=== PATIENT | female | born 1985 | race Caucasian/White ===

== ENCOUNTER 2017-07-15 16:17 | Emergency (ER) | payer OTHER ==
[2017-07-15 16:52] VITALS: BP 105/72
[2017-07-15] MEDS ORDERED: SODIUM CHLORIDE 0.9% 1,000 ML IV ONE (17:40)
[2017-07-15] MEDS ORDERED: ONDANSETRON 4 MG/2 ML VIAL IVP STA (17:40)
--- NOTE | 2017-07-15 17:42 | ED Physician Documentation ---
History of Present Illness - Stated complaint Stated Complaint: VOMITING - Chief complaint Chief Complaint: General - History obtained from History obtained from: Patient - History of Present Illness Timing: Other (G3 with recent positive home test, she is unsure of her LMP, she had a normal one in April but some spotting in May. Since yesterday she has had trouble with nausea and vomiting not associated with cramping, abdominal pain, diarrhea, or bleeding.) Review of Systems Constitutional: denies: Fever, Chills GI: reports: Nausea, Vomiting. denies: Abdominal Pain, Abdominal Swelling, Constipation, Diarrhea : denies: Dysuria PD PAST MEDICAL HISTORY - Past Surgical History Past Surgical History: No - Present Medications Home Medications: Ambulatory Orders Medication Instructions Recorded Confirmed Hydrocodone/Acetaminophen 1 - 2 each PO Q6H PRN #10 tablet 01/26/16 [Hydrocodon-Acetaminophen 5-325] Nitrofurantoin Monohyd/M-Cryst 100 mg PO BID 5 Days 01/26/16 [Macrobid 100 mg Capsule] Metoclopramide [Reglan] 10 mg PO Q6H PRN #20 tablet 07/15/17 Nitrofurantoin Monohyd/M-Cryst 1 tab PO BID 5 Days 07/15/17 [Macrobid 100 mg Capsule] - Allergies Allergies/Adverse Reactions: Allergies Allergy/AdvReac Type Severity Reaction Status Date / Time No Known Drug Allergies Allergy Verified 07/15/17 16:40 - Social History Does the pt smoke?: No Smoking Status: Never smoker Does the pt drink ETOH?: No Does the pt have substance abuse?: No - Immunizations Immunizations are current?: Yes PD ED PE NORMAL - Vitals Vital signs reviewed: Yes - General General: Alert and oriented X 3, No acute distress - Abdomen Abdomen: Normal bowel sounds, Soft, Non tender - Female Female : Other (Bedside ultrasound demonstrates single intrauterine with crown-rump length equivalent to 7 week 1 day gest; I believe I saw heart motion, but it was difficult to specifically delineate using the transabdominal approach and M-mode.) - Derm Derm: No rash - Neuro Neuro: Alert and oriented X 3, Normal speech - Psych Psych: Normal mood, Normal affect Results - Vitals Vitals: Vital Signs - 24 hr 07/15/17 16:36 Temperature 36.4 C L Heart Rate 72 Respiratory 20 Rate Blood Pressure 105/72 O2 Saturation 100 Oxygen O2 Source Room air - Labs Labs: Laboratory Tests 07/15/17 07/15/17 17:50 17:55 Sodium 134 L Potassium 3.6 Chloride 102 Carbon Dioxide 23 Anion Gap 9.0 BUN 9 Creatinine 0.6 Estimated GFR (MDRD) 118 Glucose 88 Calcium 9.0 Urine Color YELLOW Urine Clarity CLEAR Urine pH 6.0 Ur Specific [place] 1.020 Urine Protein NEGATIVE Urine Glucose (UA) NEGATIVE Urine Ketones 15 H Urine Occult Blood NEGATIVE Urine Nitrite POSITIVE H Urine Bilirubin NEGATIVE Urine Urobilinogen 0.2 (NORMAL) Ur Leukocyte Esterase NEGATIVE Urine RBC None Seen Urine WBC 0-3 Ur Squamous Epith Cells MANY Squamous H Urine Bacteria Many H Ur Microscopic Review INDICATED Urine Culture Comments NOT INDICATED PD MEDICAL DECISION MAKING - ED course ED course: 31-year-old G3 with vomiting in , no evidence of ectopic or significant illness. Much better after dose of Zofran and IV fluids. She does have bacteriuria which will be treated. Departure - Departure Disposition: Home, Self Care Clinical Impression: Hyperemesis arising during Urinary tract infection Qualifiers: Urinary tract infection type: acute cystitis Hematuria presence: without hematuria Qualified Code(s): N30.00 - Acute cystitis without hematuria Condition: Good Record reviewed to determine appropriate education?: Yes Instructions: ED Preg Morning Sickness Follow-Up: [facility] [Provider Group] Prescriptions: Nitrofurantoin Monohyd/M-Cryst [Macrobid 100 mg Capsule] 1 tab PO BID 5 Days Metoclopramide [Reglan] 10 mg PO Q6H PRN #20 tablet PRN Reason: Nausea / Vomiting Comments: Call your doctor to arrange a follow-up appointment, make the next available appointment. In the interim, return anytime if worse or if new symptoms develop.
[2017-07-15] MEDS ORDERED: SODIUM CHLORIDE FLUSH 0.9% 10 ML SYRINGE IVP ONE (17:48)
[2017-07-15] MEDS ORDERED: ONDANSETRON 4 MG/2 ML VIAL ONE (17:48)
[2017-07-15 18:13] LABS: CREATININE 0.6 mg/dL (0.4-1.0); POTASSIUM 3.6 mmol/L (3.5-5.0)
[2017-07-15 18:14] LABS: BILIRUBIN,URINE NEGATIVE (NEGATIVE)
[2017-07-15 18:27] LABS: UA w/ MICROSCOPIC CHARGE YES
[2017-07-15 18:29] LABS: UR CULTURE IF IND NOT INDICATED; WBC,URINE 0-3 /HPF (0-5)
[2017-07-15] MEDS ORDERED: NITROFURANTOIN MACRO 100 MG CAPSULE PO STA (18:39)
[2017-07-15] MEDS ORDERED: NITROFURANTOIN MACRO 100 MG CAPSULE PO ONE (18:58)
== END 2017-07-15 19:01 | disposition home or self-care (01) ==
LOC: ED 16:17
DX: O21.0 Mild hyperemesis gravidarum (principal); O23.11 Infections of bladder in pregnancy, first trimester; N30.00 Acute cystitis without hematuria; Z3A.01 Less than 8 weeks gestation of pregnancy
CPT/HCPCS: 36415; 80048; 81001; 96374; 99283; A9270; 81003; 87086

== ENCOUNTER 2017-09-01 19:55 | Emergency (ER) | payer OTHER ==
--- NOTE | 2017-09-01 20:04 | ED Physician Documentation ---
PD HPI FEMALE - Stated complaint Stated Complaint: FEMALE /17WK OB - Chief complaint Chief Complaint: Abd Pain - History obtained from History obtained from: Patient - History of Present Illness Timing - onset: Today (about 30 minutes ago) Timing - details: Abrupt onset (she had been feeling okay, is 15 weeks by dates with LMP May 19, with okay so far. Has not had OB appt yet as clinic was booked up. first appt in couple weeks. She was playing with her 2 year old and he pounced on her abdomen at home, with onset of cramping lower abd into low back and then noted vaginal bleeding. She has used 1 pad so far.) Associated symptoms: Pelvic pain (just tonight), Vaginal bleeding. No: Vaginal pain, Vaginal discharge, Genital sore/lesion, Dysuria, Urinary frequency, Hematuria Contributing factors: (LMP for EGA 15 weeks.) OB-HEAVY DUTY MECHANIC History: G (2), P (1) Similar symptoms before: Has not had sx before Recently seen: Not recently seen Review of Systems Nose: denies: Rhinorrhea / runny nose, Congestion Throat: denies: Sore throat Cardiac: denies: Chest pain / pressure Respiratory: denies: Dyspnea, Cough GI: reports: Abdominal Pain, Nausea. denies: Vomiting, Diarrhea : reports: Vaginal bleeding (just the past 1/2 hour). denies: Dysuria, Frequency, Discharge Skin: denies: Abrasion (s), Laceration (s) Neurologic: denies: Generalized weakness, Focal weakness, Numbness, Near syncope , Syncope PD PAST MEDICAL HISTORY - Past Medical History Cardiovascular: None Respiratory: None Neuro: None Endocrine/Autoimmune: None HEAVY DUTY MECHANIC: None - Past Surgical History Past Surgical History: No - Present Medications Home Medications: Ambulatory Orders Medication Instructions Recorded Confirmed Cephalexin [Keflex] 500 mg PO TID #15 capsule 09/01/17 - Allergies Allergies/Adverse Reactions: Allergies Allergy/AdvReac Type Severity Reaction Status Date / Time No Known Drug Allergies Allergy Verified 09/01/17 20:00 - Social History Does the pt smoke?: No Smoking Status: Never smoker Does the pt drink ETOH?: No Does the pt have substance abuse?: No - Immunizations Immunizations are current?: Yes PD ED PE NORMAL - Vitals Vital signs reviewed: Yes - General General: Alert and oriented X 3, No acute distress, Well developed/nourished - Cardiac Cardiac: RRR, No murmur - Respiratory Respiratory: Clear bilaterally - Abdomen Abdomen: Normal bowel sounds, Soft, Non distended, No organomegaly, Other (mild tenderness lower abd/suprapubic area without guarding/percussion tenderness. ) - Female Female : Deferred - Rectal Rectal: Deferred - Back Back: No CVA TTP - Derm Derm: Normal color, Warm and dry - Extremities Extremities: No deformity, Normal ROM s pain - Neuro Neuro: Alert and oriented X 3, No motor deficit, Normal speech Results - Vitals Vitals: Vital Signs - 24 hr 09/01/17 09/01/17 19:58 21:17 Temperature 36.9 C Heart Rate 89 80 Respiratory 18 16 Rate Blood Pressure 112/72 117/68 O2 Saturation 100 98 Oxygen O2 Source Room air - Labs Labs: Laboratory Tests 09/01/17 09/01/17 20:10 20:27 POC Whole Bld Glucose 102 H Urine Color YELLOW Urine Clarity HAZY Urine pH 6.0 Ur Specific [place] >=1.030 H Urine Protein NEGATIVE Urine Glucose (UA) NEGATIVE Urine Ketones TRACE Urine Occult Blood LARGE H Urine Nitrite POSITIVE H Urine Bilirubin NEGATIVE Urine Urobilinogen 0.2 (NORMAL) Ur Leukocyte Esterase NEGATIVE Urine RBC 0-5 Urine WBC 0-3 Ur Squamous Epith Cells MANY Squamous H Urine Bacteria Many H Ur Microscopic Review INDICATED Urine Culture Comments NOT INDICATED Procedures - Bedside sono Bedside sono by EMP: Normal IUP with good regular movements. FHR at 140s. Normal uterine fluid appearance. No free fluid seen in pelvis. PD MEDICAL DECISION MAKING - ED course Complexity details: re-evaluated patient (she went to bathroom just prior to discharge and says the vaginal bleeding is much human factors engineer but is having some clearish/ mucous looking fluid. Less abd cramping. Not feeling lightheaded. ), d /w independent marketing consultant (Dr. Valderrama - no particular interventions/ meds at this time, presume cervical plug or such. Return if persistent fluid/bleeding. Recheck OB/ HEAVY DUTY MECHANIC in couple days. ) Departure - Departure Disposition: 01 Home, Self Care Clinical Impression: Uterine cramping, Bleeding in early UTI (urinary tract infection) Qualifiers: Urinary tract infection type: acute cystitis Hematuria presence: with hematuria Qualified Code(s): N30.01 - Acute cystitis with hematuria Condition: Stable Record reviewed to determine appropriate education?: Yes Instructions: Bleeding Early Preg, ED UTI Cystitis Female Follow-Up: [facility] [Provider Group] Prescriptions: Cephalexin [Keflex] 500 mg PO TID #15 capsule Comments: Use Tylenol or ibuprofen if needed for pains or cramps. Drink lots of fluids. Rest tonight and tomorrow. Light activity is good but nothing vigorous. You do have signs of a bladder infection and this can cause irritation of the uterus with some spotting and bleeding. The injury to the belly that you had could also cause some cramping and bleeding. Typically this will be short and self-limited and may be disruption of the mucous plug of the cervix. The baby looks good on ultrasound right now. I talked with our MANAGER APPLICATION on-call and there was not any particular intervention or medication to be used at this time, for concern if this could lead to miscarriage. That would be very infrequent. Currently the preference would be less irritation and disruption of the cervix and so I would defer a pelvic exam at this point given the good view of the baby on ultrasound. We will treat the bladder infection with some antibiotics. Return if you have increased significant bleeding or pains or other problems. Otherwise [place]. Discharge Date/Time: 09/01/17 21:10
[2017-09-01] MEDS ORDERED: IBUPROFEN 400 MG TABLET PO STA (20:23)
[2017-09-01] MEDS ORDERED: ACETAMINOPHEN 325 MG TABLET PO STA (20:23)
[2017-09-01 20:28] LABS: BILIRUBIN,URINE NEGATIVE (NEGATIVE)
[2017-09-01] MEDS ORDERED: IBUPROFEN 400 MG TABLET PO ONE (20:36)
[2017-09-01] MEDS ORDERED: ACETAMINOPHEN 325 MG TABLET PO ONE (20:36)
[2017-09-01 20:37] LABS: UA w/ MICROSCOPIC CHARGE YES; UR CULTURE IF IND NOT INDICATED; WBC,URINE 0-3 /HPF (0-5)
[2017-09-01] MEDS ORDERED: CEPHALEXIN 250 MG CAPSULE PO STA (20:45)
[2017-09-01] MEDS ORDERED: CEPHALEXIN 250 MG CAPSULE PO ONE (20:52)
[2017-09-01 21:19] VITALS: BP 117/68
== END 2017-09-01 21:10 | disposition home or self-care (01) ==
LOC: ED 19:55
DX: O26.892 Other specified pregnancy related conditions, second trimester (principal); N94.89 Other specified conditions associated with female genital organs and menstrual cycle; O20.9 Hemorrhage in early pregnancy, unspecified; O23.12 Infections of bladder in pregnancy, second trimester; Z3A.15 15 weeks gestation of pregnancy
CPT/HCPCS: 81001; 99283; A9270; 36415; 80053; 81003; 83690; 85025; 87086

== ENCOUNTER 2017-10-02 14:30 | Outpatient (CLI) | payer OTHER | END 2017-10-02 14:31 | disposition home or self-care (01) | LOC: LAB.F 14:30 | PROVIDERS: ATTEND Obstetrics & Gynecology | DX: Z3A.17 17 weeks gestation of pregnancy (principal); R82.99 Other abnormal findings in urine ==

== ENCOUNTER 2017-10-03 11:40 | Outpatient (CLI) | payer OTHER ==
[2017-10-03 12:29] LABS: BILIRUBIN,URINE NEGATIVE (NEGATIVE)
[2017-10-04 12:41] LABS: TEST RESULT REPORT
== END 2017-10-03 11:41 | disposition home or self-care (01) ==
LOC: LAB 11:40
PROVIDERS: ATTEND Obstetrics & Gynecology
DX: R82.99 Other abnormal findings in urine (principal); Z3A.17 17 weeks gestation of pregnancy
CPT/HCPCS: 36415; 81001; 81599; 82105; 82677; 84702; 86336

== ENCOUNTER 2017-11-08 12:52 | Outpatient (CLI) | payer OTHER ==
--- NOTE | 2017-11-09 16:11 | Ultrasound Report ---
EXAM: OB ULTRASOUND 11/08/2017 CLINICAL INDICATION: anatomy. TECHNIQUE: Real-time scanning was performed with manufacturer's service representative static images obtained. LAST MENSTRUAL PERIOD: 06/02/2017 Clinical Age: 22 weeks 5 days US Age: 22 weeks 6 days EFW Hadlock: 565 EFW% Hadlock: --- Heart Rate: 145 bpm EDC: 03/09/2018 US EDC: 03/08/2018 BPD Hadlock: 22 weeks 4 days; Mean mm 54 HC Hadlock: 22 weeks 1 day; Mean mm 200 AC Hadlock: 23 weeks 1 day; Mean mm 182 FL Hadlock: 23 weeks 3 days; Mean mm 41 Presentation: cephalic Placental Location: posterior Cervical Length: 6.5 cm Amniotic Fluid: --- FINDINGS There is a single viable intrauterine gestation, in cephalic presentation. heart rate is 145 BPM. The placenta is posterior, without evidence of previa. Amniotic fluid volume is subjectively normal. By size, the fetus measures 22 weeks 6 days (22 weeks 5 days by LMP). The following anatomic structures were visualized and appear normal: The intracranial contents, including the ventricles and posterior fossa; the lips and orbits; the spine; the heart, including 4 chamber view and outflow tracts, and diaphragm; the abdominal contents, including the stomach, the bilateral kidneys, and urinary bladder, as well as a normal 3 vessel cord insertion; 4 limbs. Due to positioning, imaging of the cardiac structures, including outflow tracts, is limited. No free fluid or adnexal lesion is appreciated. IMPRESSION: SINGLE VIABLE INTRAUTERINE GESTATION, WITH SIZE IN KEEPING WITH LMP DATING. SUBOPTIMAL VISUALIZATION OF THE CARDIAC STRUCTURES. OTHERWISE, NORMAL ANATOMIC SURVEY. TD: 11/08/2017 15:49 [facility]
== END 2017-11-08 12:53 | disposition home or self-care (01) ==
LOC: DI 12:52
PROVIDERS: ATTEND Obstetrics & Gynecology
DX: Z36.9 Encounter for antenatal screening, unspecified (principal)
CPT/HCPCS: 76811

== ENCOUNTER 2017-11-19 15:30 | Outpatient (CLI) | payer OTHER ==
[2017-11-19 15:54] VITALS: BP 110/60
[2017-11-19 16:08] LABS: BILIRUBIN,URINE NEGATIVE (NEGATIVE); GLUCOSE, URINE (UA) NEGATIVE (NEGATIVE); KETONES,URINE (UA) NEGATIVE (NEGATIVE); LEUKOCYTE ESTERASE, URINE TRACE (NEGATIVE); NITRITE,URINE NEGATIVE (NEGATIVE); OCCULT BLOOD,URINE NEGATIVE (NEGATIVE); PH,URINE 6.5 PH (5.0-7.5); PROTEIN,URINE NEGATIVE (NEGATIVE); UROBILINOGEN,URINE 0.2 (NORMAL) E.U./dL (NORMAL)
[2017-11-19 16:12] LABS: CLARITY,URINE HAZY (CLEAR)
[2017-11-19 16:22] LABS: BACTERIA,URINE Many /HPF (None Seen); RBC,URINE 0-5 /HPF (0-5); SQUAMOUS EPITHELIAL CELL,UR MANY Squamous (<= Few)
== END 2017-11-19 16:37 | disposition home or self-care (01) ==
LOC: WFO 15:30 → FBP 15:34 → WFO 16:37
PROVIDERS: ATTEND Obstetrics & Gynecology
DX: O23.12 Infections of bladder in pregnancy, second trimester (principal); Z3A.24 24 weeks gestation of pregnancy
CPT/HCPCS: 81001; 87086; 99213

== ENCOUNTER 2017-12-09 11:20 | Outpatient (CLI) | payer OTHER ==
[2017-12-09 13:09] LABS: HGB - HEMOGLOBIN 11.9 g/dL (12.0-16.0); MEAN CORPUSCULAR HEMOGLOBIN 32.1 pg (27.0-31.0); MEAN CORPUSCULAR HGB CONC 35.4 g/dL (32.0-36.0); MEAN CORPUSCULAR VOLUME 90.7 fL (81.0-99.0); MEAN PLATELET VOLUME 7.7 fL (7.9-10.8); RED BLOOD COUNT 3.71 10^6/uL (4.20-5.40); RED CELL DISTRIBUTION WIDTH 12.8 % (12.0-15.0); WHITE BLOOD COUNT 7.7 x10^3/uL (4.8-10.8)
== END 2017-12-09 11:21 | disposition home or self-care (01) ==
LOC: LAB 11:20
PROVIDERS: ATTEND Obstetrics & Gynecology
DX: Z34.90 Encounter for supervision of normal pregnancy, unspecified, unspecified trimester (principal)
CPT/HCPCS: 36415; 82950; 86850

== ENCOUNTER 2017-12-16 07:57 | Outpatient (CLI) | payer OTHER | END 2017-12-16 07:58 | disposition home or self-care (01) | LOC: LAB 07:57 | PROVIDERS: ATTEND Obstetrics & Gynecology | DX: Z36.9 Encounter for antenatal screening, unspecified (principal) | CPT/HCPCS: 36415; 82951 ==

== ENCOUNTER 2017-12-18 13:27 | Outpatient (CLI) | payer OTHER ==
--- NOTE | 2017-12-20 12:38 | Ultrasound Report ---
OB FOLLOWUP: 12/18/2017 CLINICAL INDICATION: Incomplete anatomy. COMPARISON: 11/08/2017. TECHNIQUE: Real-time scanning was performed with sales representative health insurance static images obtained. LAST MENSTRUAL PERIOD 06/01/2017 Clinical Age 28 weeks 4 days US Age 28 weeks 3 days EFW Hadlock 1308 g EFW% Hadlock 57% Heart Rate 154 bpm EDC 03/08/2018 US EDC 03/09/2018 BPD Hadlock 27 weeks 1 day; Mean mm 67.4 HC Hadlock 28 weeks 1 day; Mean mm 264.2 AC Hadlock 29 weeks 1 day; Mean mm 249.7 FL Hadlock 29 weeks 0 days; Mean mm 55.0 Presentation breech Placental Location posterior Cervical Length --- Amniotic Fluid 4.5 cm FINDINGS: There is a single viable intrauterine gestation, in breech presentation. heart rate is 154 BPM. The placenta is posterior, without evidence of previa. Amniotic fluid volume is normal, with an CUATE of 13.0. By size, the fetus now measures 28 weeks 3 days (28 weeks 4 days by initial sonogram, 28 weeks 3 days by LMP). The cardiac structures, including 4- chamber view and outflow tracts, appear normal. IMPRESSION: UNREMARKABLE COMPLETION OF THE ANATOMIC SURVEY. EXPECTED INTERVAL GROWTH. SIZE IN KEEPING WITH LMP DATING. TD: 12/18/2017 16:11 [email or web address]
== END 2017-12-18 13:28 | disposition home or self-care (01) ==
LOC: DI 13:27
PROVIDERS: ATTEND Obstetrics & Gynecology
DX: Z36.2 Encounter for other antenatal screening follow-up (principal)
CPT/HCPCS: 76816

== ENCOUNTER 2017-12-24 10:23 | Outpatient (CLI) | payer OTHER | END 2017-12-24 10:24 | disposition home or self-care (01) | LOC: LAB.R 10:23 | PROVIDERS: ATTEND Obstetrics & Gynecology | DX: Z11.3 Encounter for screening for infections with a predominantly sexual mode of transmission (principal) | CPT/HCPCS: 87491; 87591 ==

== ENCOUNTER 2018-01-02 12:18 | Outpatient (CLI) | payer OTHER ==
[2018-01-02 12:55] LABS: BILIRUBIN,URINE SMALL (NEGATIVE); GLUCOSE, URINE (UA) NEGATIVE (NEGATIVE); KETONES,URINE (UA) TRACE mg/dL (NEGATIVE); LEUKOCYTE ESTERASE, URINE TRACE (NEGATIVE); NITRITE,URINE NEGATIVE (NEGATIVE); OCCULT BLOOD,URINE NEGATIVE (NEGATIVE); PROTEIN,URINE TRACE mg/dL (NEGATIVE); UROBILINOGEN,URINE 1 (NORMAL) E.U./dL (NORMAL)
[2018-01-02 12:57] LABS: BASOPHILS # (AUTO) 0.1 10^3/uL (0.0-0.1); BASOPHILS % (AUTO) 0.9 %; EOSINOPHILS % (AUTO) 0.6 %; HGB - HEMOGLOBIN 12.4 g/dL (12.0-16.0); LYMPHOCYTES # (AUTO) 1.4 10^3/uL (1.5-3.5); LYMPHOCYTES % (AUTO) 16.9 %; MEAN CORPUSCULAR HEMOGLOBIN 31.6 pg (27.0-31.0); MEAN CORPUSCULAR HGB CONC 34.9 g/dL (32.0-36.0); MEAN CORPUSCULAR VOLUME 90.7 fL (81.0-99.0); MEAN PLATELET VOLUME 7.7 fL (7.9-10.8); MONOCYTES # (AUTO) 0.5 10^3/uL (0.0-1.0); MONOCYTES % (AUTO) 5.6 %; NEUTROPHILS # (AUTO) 6.2 10^3/uL (1.5-6.6); PLT - PLATELET COUNT 252 10^3/uL (130-450); RED BLOOD COUNT 3.91 10^6/uL (4.20-5.40); WHITE BLOOD COUNT 8.1 x10^3/uL (4.8-10.8)
[2018-01-02 13:11] LABS: BACTERIA,URINE Many /HPF (None Seen); CLARITY,URINE CLOUDY (CLEAR); HB2 TOTAL 13.8 g/dL; HEMOGLOBIN A1C 0.4 g/dL; HEMOGLOBIN A1C % 4.8 % (4.6-6.2); RBC,URINE 0-5 /HPF (0-5); SQUAMOUS EPITHELIAL CELL,UR MANY Squamous (<= Few)
[2018-01-02 13:12] LABS: ICTOTEST,URINE POS
[2018-01-03 13:43] LABS: HEPATITIS C ANTIBODY NON-REACTIVE (NON-REACTIVE)
[2018-01-03 14:31] LABS: HIV AG/AB 4TH GEN NON-REACTIVE (NON-REACTIVE)
[2018-01-03 15:06] LABS: HEPATITIS B SURFACE ANTIGEN NON-REACTIVE (NON-REACTIVE)
== END 2018-01-02 12:19 | disposition home or self-care (01) ==
LOC: LAB 12:18
PROVIDERS: ATTEND Obstetrics & Gynecology
DX: Z36.9 Encounter for antenatal screening, unspecified (principal)
CPT/HCPCS: 36415; 81001; 81599; 83036; 85025; 86592; 86762; 86803; 86850; 86900; 86901; 87340; 87389

== ENCOUNTER 2018-01-27 11:18 | Outpatient (CLI) | payer OTHER | END 2018-01-27 11:19 | disposition home or self-care (01) | LOC: LAB.R 11:18 | PROVIDERS: ATTEND Obstetrics & Gynecology | DX: Z11.3 Encounter for screening for infections with a predominantly sexual mode of transmission (principal) | CPT/HCPCS: 87491; 87591 ==

== ENCOUNTER 2018-02-10 08:00 | Outpatient (CLI) | payer OTHER | END 2018-02-10 08:01 | LOC: LAB.R 08:00 | PROVIDERS: ATTEND Obstetrics & Gynecology | DX: Z36.85 Encounter for antenatal screening for Streptococcus B (principal) | CPT/HCPCS: 87081 ==

== ENCOUNTER 2018-02-18 05:03 | Observation (INO) | payer OTHER ==
[2018-02-18] MEDS ORDERED: LACTATED RINGERS 1,000 ML IV ONE (06:24)
[2018-02-18] MEDS ORDERED: SODIUM CHLORIDE FLUSH 0.9% 10 ML SYRINGE ONE ×6 (06:24→16:44)
[2018-02-18] MEDS ORDERED: LACTATED RINGERS 250 ML IV ONE (06:41)
[2018-02-18 06:45] LABS: BASOPHILS # (AUTO) 0.1 10^3/uL (0.0-0.1); BASOPHILS % (AUTO) 0.7 %; EOSINOPHILS % (AUTO) 0.1 %; HGB - HEMOGLOBIN 12.2 g/dL (12.0-16.0); LYMPHOCYTES # (AUTO) 0.8 10^3/uL (1.5-3.5); LYMPHOCYTES % (AUTO) 6.8 %; MEAN CORPUSCULAR HEMOGLOBIN 30.4 pg (27.0-31.0); MEAN CORPUSCULAR HGB CONC 33.4 g/dL (32.0-36.0); MEAN CORPUSCULAR VOLUME 90.9 fL (81.0-99.0); MEAN PLATELET VOLUME 7.7 fL (7.9-10.8); MONOCYTES # (AUTO) 0.4 10^3/uL (0.0-1.0); MONOCYTES % (AUTO) 3.4 %; PLT - PLATELET COUNT 216 10^3/uL (130-450); RED BLOOD COUNT 4.03 10^6/uL (4.20-5.40); WHITE BLOOD COUNT 11.2 x10^3/uL (4.8-10.8)
[2018-02-18 06:56] LABS: GLUCOSE, URINE (UA) NEGATIVE (NEGATIVE); KETONES,URINE (UA) 15 mg/dL (NEGATIVE); LEUKOCYTE ESTERASE, URINE NEGATIVE (NEGATIVE); NITRITE,URINE NEGATIVE (NEGATIVE); OCCULT BLOOD,URINE NEGATIVE (NEGATIVE); PROTEIN,URINE NEGATIVE (NEGATIVE); UROBILINOGEN,URINE 2 E.U./dL (NORMAL)
[2018-02-18] MEDS ORDERED: LACTATED RINGERS 1,000 ML IV SCH (07:00)
[2018-02-18 07:17] LABS: BACTERIA,URINE Few /HPF (None Seen); BILIRUBIN,URINE NEGATIVE (NEGATIVE); CLARITY,URINE SL. CLOUDY (CLEAR); ICTOTEST,URINE NEGATIVE; RBC,URINE None Seen /HPF (0-5); SQUAMOUS EPITHELIAL CELL,UR MOD Squamous (<= Few)
[2018-02-18] MEDS ORDERED: DEXTROSE 5%-LACTATED RINGERS 1,000 ML IV SCH (10:00)
--- NOTE | 2018-02-18 10:03 | Ultrasound Report ---
ABDOMEN ULTRASOUND COMPLETE: 02/18/2018 HISTORY: 37 weeks with right mid abdominal pain, fever, and vomiting. TECHNIQUE: Real-time scanning by the sledger with saved static images reviewed. COMPARISON: None. FINDINGS: LIVER: Normal echotexture and portal venous blood flow. No focal pathology. Length 17 cm. GALLBLADDER: No stones. Wall thickness 2.5 mm. BILIARY TREE: Common bile duct 6 mm. PANCREAS: Obscured. KIDNEYS: Right 12 cm. Left 12.5 cm. No mass, stones, or evidence of obstruction. SPLEEN: 12 cm, volume 225 mL. Unremarkable echotexture. AORTA AND INFERIOR VENA CAVA: Unremarkable. FREE FLUID: None. RIGHT LOWER QUADRANT: Appendix not seen. IMPRESSION: NEGATIVE ABDOMEN ULTRASOUND. THE APPENDIX IS NOT IDENTIFIED. DISCUSSED WITH DR. JOYCE. TD: 02/18/2018 10:02 [email or web address]
[2018-02-18] MEDS ORDERED: ONDANSETRON 4 MG/2 ML VIAL IVP SCH (10:19)
[2018-02-18] MEDS ORDERED: ONDANSETRON 4 MG/2 ML VIAL ONE (10:29)
[2018-02-18] MEDS ORDERED: RHO(D) IMMUNE GLOBULIN 300 MCG SYRINGE IM ONE (14:30)
--- NOTE | 2018-02-18 17:36 | MRI Preliminary Report ---
Exam: MRI ABDOMEN W/O IMPRESSION: 1. Third trimester gestation in cephalic presentation, cervix is 4.5 cm in length and closed. 2. Placenta is posterior right and somewhat prominent, large vascular structures are seen within the placenta and also images the uterus. No MRI evidence for placental abruption or placental mass. Doppl er flow is recommended for further evaluation of placental flow however. 3. Limited anatomy and maternal anatomy as described shows normal findings. 4. There is a linear fluid-filled structure adjacent to the appendix has a diameter of about 4.7 mm. No MRI evidence for appendicitis. No secondary signs of appendicitis. RADIA The call report notification system was initiated by Dr. Smooth Sanchez at 17:19 hrs on 02/18/18. The above findings were discussed with Dr. Zach Dr by Dr. Smooth Sanchez at 17:35 hrs on 02/18/18. SITE ID: [id number]
--- NOTE | 2018-02-18 17:57 | MRI Report ---
EXAM: MR SCAN OF THE ABDOMEN AND PELVIS WITHOUT CONTRAST EXAM DATE: 02/18/2018 04:27 PM CLINICAL HISTORY: Nausea and vomiting with right abdominal pain. COMPARISON: None. TECHNIQUE: Routine abdominal MRI without contrast. FINDINGS: Within the gravid uterus there is a third trimester gestation in cephalic presentation. Cer vix is 4.5 cm in length and closed. Placenta is posterior right, somewhat prominent. Large vascular structures are seen in the placenta a nd also in the adjacent uterus. No MRI evidence for placental abruption or placental mass. Doppler fl ow, however, should be assessed with ultrasound. anatomy shows intact diaphragm, normal situs, no hydronephrosis. No polyhydramnios. Maternal anatomy shows normal-appearing kidneys, adrenal glands, liver and spleen. Pancreas also appe ars unremarkable. Gallbladder as visualized shows no stones. No intrahepatic bile duct distention. Linear fluid-filled structure is adjacent to the appendix that has a diameter of about 4.7 mm. No sec ondary signs of appendicitis. No free fluid. IMPRESSION: 1. Third trimester gestation in cephalic presentation, cervix is 4.5 cm in length and closed. 2. Placenta is posterior right and somewhat prominent, large vascular structures are seen within the placenta and also in the adjacent uterus. No MRI evidence for placental abruption or placental mass. Doppler flow is recommended for further evaluation of placental flow, however. 3. Limited anatomy and maternal anatomy as described shows normal findings. 4. There is a linear fluid-filled structure adjacent to the appendix that has a diameter of about 4.7 mm. No MRI evidence for appendicitis. No secondary signs of appendicitis. RADIA The call report notification system was initiated by Dr. Smooth Sanchez at 17:19 hrs on 02/18/18. The above findings were discussed with Dr. Serrano by Dr. Smooth Sanchez at 17:35 hrs on 02/18/18. Referring Provider Line: [phone] SITE ID: [id number]
[2018-02-18 18:55] VITALS: BP 106/60
--- NOTE | 2018-03-06 13:56 | HISTORY & PHYSICAL EXAMINATION ---
DATE OF SERVICE: 02/18/2018 Physician: Ady Serrano MD PATIENT IDENTIFICATION: Patient is a 32-year-old G2, P1 female, who is 37.2 weeks. Her EDC is 09 March. This is with first visit at 17 weeks EGA. She has had 11 visits. CHIEF COMPLAINT: Nausea, vomiting. HISTORY OF PRESENT ILLNESS: Patient gives a day history of nausea, vomiting, and diarrhea. She also is noted, on physical examination, to have some right mid abdominal pain. She denies any history of an appendectomy. She notes good motion. She denies bleeding or contractions at this time. She denies any family members with any nausea and vomiting at this time. PAST MEDICAL HISTORY: Positive for hepatitis A. PAST SURGICAL HISTORY: None. ALLERGIES: NONE KNOWN. CURRENT MEDICATIONS: vitamins. HABITS: Patient denies the use of alcohol, tobacco, street or addictive drugs. PHYSICAL EXAMINATION GENERAL: Patient is a well-developed, well-nourished female. She is in mild distress at this time. VITAL SIGNS: Temperature is 37.1, heart rate is 96, blood pressure 94/56, respirations 18, O2 saturation 97. HEENT: Pupils are equal, round. Extraocular muscles are intact. CARDIOVASCULAR: Regular rate and rhythm without murmurs. LUNGS: Lung yarbrough are clear without rales or wheezes. BACK: No spinal or CVA tenderness noted. ABDOMEN: The uterus itself is nontender; however, there is tenderness on the right side of the abdomen. There is no evidence of any masses at this time there. There are no surgical scars. LABORATORY DATA: White count is 11.2, hemoglobin is 12.2, hematocrit is 36.7, platelets are 216. IMPRESSION 1. A 32-year-old G2, P1 female who is 37.2 weeks. 2. Nausea and vomiting with right-sided abdominal pain in a woman. At this point, cannot rule out an appendicitis. We will obtain ultrasound, checking for evidence of the appendix. We will also order an MRI to visualize appendix looking for evidence of appendicitis. We will evaluate these results, at which time we will make a determination. TD: 03/06/2018 13:30 MAYO
== END 2018-02-18 17:45 | disposition home or self-care (01) ==
LOC: WFO 05:03 → FBP 05:05 → WFO 06:14 → FBP 06:15 → WFO 17:07 → FBP 17:07 → UNDOADMOB 17:08 → UNDODISOB 17:45
PROVIDERS: ADMIT Obstetrics & Gynecology; ATTEND Obstetrics & Gynecology
DX: O21.2 Late vomiting of pregnancy (principal); Z3A.37 37 weeks gestation of pregnancy; R10.9 Unspecified abdominal pain; R10.819 Abdominal tenderness, unspecified site; R19.7 Diarrhea, unspecified
CPT/HCPCS: 74181; 76700; 81001; 85025; 96374; 99218; J7120; 87086

== ENCOUNTER 2018-03-07 19:50 | Inpatient (IN) | payer OTHER ==
[2018-03-07] MEDS: ACETAMINOPHEN 325 MG TABLET PO PRN (23:12)
[2018-03-08] MEDS ORDERED: MORPHINE 10 MG/ML VIAL IM STA (00:23)
[2018-03-08] MEDS ORDERED: PROMETHAZINE 25 MG/1 ML VIAL IM STA (00:24)
[2018-03-08] MEDS ORDERED: ONDANSETRON 4 MG/2 ML VIAL IVP PRN (04:11)
[2018-03-08] MEDS ORDERED: fentaNYL 100 MCG/2 ML VIAL IVP PRN (04:11)
[2018-03-08] MEDS ORDERED: SODIUM CHLORIDE FLUSH 0.9% 10 ML SYRINGE IVP PRN (04:11)
[2018-03-08] MEDS ORDERED: OXYTOCIN/SODIUM CHLORIDE 250 ML IV ONE ×2 (04:11→12:57)
[2018-03-08 05:11] LABS: BASOPHILS % (AUTO) 0.3 %; EOSINOPHILS % (AUTO) 0.4 %; LYMPHOCYTES # (AUTO) 1.9 10^3/uL (1.5-3.5); LYMPHOCYTES % (AUTO) 19.1 %; MEAN CORPUSCULAR HEMOGLOBIN 30.7 pg (27.0-31.0); MEAN CORPUSCULAR HGB CONC 33.2 g/dL (32.0-36.0); MEAN CORPUSCULAR VOLUME 92.4 fL (81.0-99.0); MEAN PLATELET VOLUME 8.1 fL (7.9-10.8); MONOCYTES # (AUTO) 0.8 10^3/uL (0.0-1.0); MONOCYTES % (AUTO) 7.6 %; NEUTROPHILS # (AUTO) 7.2 10^3/uL (1.5-6.6); NEUTROPHILS % (AUTO) 72.6 %; PLT - PLATELET COUNT 202 10^3/uL (130-450); RED BLOOD COUNT 3.91 10^6/uL (4.20-5.40); RED CELL DISTRIBUTION WIDTH 12.8 % (12.0-15.0); WHITE BLOOD COUNT 9.9 x10^3/uL (4.8-10.8)
[2018-03-08] MEDS ORDERED: fent/BUPIV 2 MCG/0.125% 250 ML EP ONE (05:26)
[2018-03-08] MEDS: LACTATED RINGERS 1,000 ML IV SCH ×2 (05:30→06:41)
--- NOTE | 2018-03-08 05:32 | PROVIDER PROGRESS NOTE ---
Labor Progress Note - Uterine Monitoring Uterine Monitoring Mode: positive: External toco Contraction Frequency (min/apart): Q2-3 : 140's Contraction Intensity: positive: Moderate to strong Uterine Resting Tone: positive: Soft - Monitoring Monitor Mode: positive: External ultrasound Heart Rate Variability: positive: Moderate (6-25 bmp) Accelerations: positive: Present, 15x15 Decelerations: positive: None Strip Review: positive: Category I - Vaginal Exam Dilation (in cm): 7-8 (per RN exam) - Labor Progress Note Labor Progress Note/Additional Text: 32 yo with a 39w6d IUP Active labor Reassuring and maternal status Epidural currently placed by True Espana MD Expect H&P Dictated [id number]
[2018-03-08] MEDS ORDERED: ROPIVACAINE 0.5% PF 20 ML AMPULE EP ONE (06:14)
--- NOTE | 2018-03-08 06:21 | PREOP HISTORY & PHYSICAL ---
DATE OF SERVICE: 03/08/2018 Physician: Carolina Valderrama DO IDENTIFICATION: A 32-year-old G2, P1-0-0-1 with 39 and 6/7 week intrauterine . EDC is 03/09/2018, consistent with a 17-week ultrasound. HISTORY OF PRESENT ILLNESS: Patient is a patient of [facility]. She presented on the evening of 03/07/2018 with complaints of contractions. Patient had slow but gradual cervical examination of cervical change. Her initial examination showed that she was 3 cm dilated to 25% effaced and -2 station. Repeat examination showed that she progressed to 4 cm dilated, 50% effaced and -1 station approximately 2-1/2 hours later. Next recheck of her cervix about 2 hours later revealed she was 5 cm dilated, 50% effaced and -1 station. Patient received an epidural for pain control. Her strip has been reassuring with her entire intrapartum course. Baseline in the 140s with good long-term variability, and that is category 1 tracing. Some variable decelerations were noted. Patient has had consistent contractions approximately every 2-4 minutes with most contractions being about every 2 minutes. We will admit patient to Labor and Delivery, and expect a spontaneous vaginal delivery. PAST MEDICAL HISTORY: None. She denies any hypertension, diabetes or thyroid disorder. PAST SURGICAL HISTORY: None. ALLERGIES: NO DRUG ALLERGIES. MEDICATIONS 1. vitamins. 2. Iron. SOCIAL HISTORY: She denies any tobacco, alcohol or illicit drug use. Patient is a homemaker. She is to [employer]ist, who is in the [place]. They have a 2- year-old named Talat. PAST OBSTETRICAL HISTORY: One term spontaneous vaginal delivery at 41 weeks 1 day of a son, Talat, who weighed 7 pounds. She did have an epidural. She denied any issues with respect to hypertension, diabetes. PAST GYNECOLOGIC HISTORY: She states all of her Pap smears have been within normal limits and she denies any sexually transmitted diseases. FAMILY HISTORY: She denies any female carcinoma. REVIEW OF SYSTEMS: She denies any nausea, vomiting, fevers, chills, diarrhea or constipation. OBJECTIVE VITAL SIGNS: Temperature is 98.1, heart rate 78, blood pressure 123/74, respiratory rate 16, O2 saturation 100% on room air. GENERAL: Patient is a well-developed, well-nourished, female in no apparent distress. She is alert and oriented x3. CARDIOVASCULAR: Rate is regular. No murmurs, rubs. PULMONARY: Lungs are clear to auscultation bilaterally. ABDOMEN: Gravid, nontender. Estimated weight is 7-1/2 pounds. records show that she had an ultrasound at [facility] on 09/02/2017 with complaints of heavy bleeding. Ultrasound showed a single, living intrauterine , posterior placenta with partial previa. There is a focal hypoechoic fluid collection along the margin of the placenta on the left measuring 1.1 x 2.8 x 5.2 cm, compatible with a hematoma secondary to abruption. Maternal cervical canal is 4.5 cm long. The 01/02/2018 labs show that she is RPR nonreactive, hepatitis C nonreactive, hepatitis B nonreactive, HIV nonreactive. Hemoglobin A1c was 4.8. Estimated average glucose is 91. White count is 8.1, H and H are 12.4 and 35.5, platelets 252. Rubella immune. She is O positive, antibody screen negative. Gonorrhea and chlamydia are both negative. One-hour glucose challenge test is 139. anatomical survey is consistent with dates and within normal limits. Placenta is posterior now. The most vertical pocket was 4.5 cm. GBS is negative. ASSESSMENT 1. A 32-year-old, G2, P1-0-0-1 at 39 and 6/7 week intrauterine . 2. Active labor. PLAN 1. We will admit to the hospital. 2. Epidural for pain control. 3. Expect spontaneous vaginal delivery. TD: 03/08/2018 06:20 MAYO
[2018-03-08] MEDS ORDERED: SODIUM CHLORIDE FLUSH 0.9% 10 ML SYRINGE IVP SCH (09:00)
[2018-03-08] MEDS ORDERED: LIDOCAINE 1% 50 ML MDV ONE (10:41)
[2018-03-08] MEDS ORDERED: miSOPROStol 200 MCG TABLET ONE (10:41)
[2018-03-08] MEDS ORDERED: MINERAL OIL LIGHT 10 ML MC ONE (10:41)
--- NOTE | 2018-03-08 10:50 | PROVIDER PROGRESS NOTE ---
Labor Progress Note - Uterine Monitoring Uterine Monitoring Mode: positive: External toco Contraction Frequency (min/apart): Q2-4 Contraction Intensity: positive: Moderate to strong Uterine Resting Tone: positive: Soft - Monitoring Monitor Mode: positive: External ultrasound Heart Rate Variability: positive: Moderate (6-25 bmp) Accelerations: positive: Present, 10x10 (=/32 wks) Decelerations: positive: Variable - Vaginal Exam Dilation (in cm): 10 Effacement (%): 100 Cervical Position: Anterior - Labor Progress Note Labor Progress Note/Additional Text: 32 yo with a 39w6d IUP Active labor Epidural working well Thick meconium on AROM Expect delivery shortly
[2018-03-08] MEDS ORDERED: HYDROCORTISONE/PRAMOXINE 10 GM PR PRN (12:57)
[2018-03-08] MEDS ORDERED: HYDROCORTISONE 1% CREAM 28 GM TUBE PR PRN (12:57)
[2018-03-08] MEDS ORDERED: MAGNESIUM HYDROXIDE 2,400 MG/30 ML UDC PO PRN (12:57)
[2018-03-08] MEDS ORDERED: HYDROcod/ACETAM 5/325 MG TABLET PO PRN (12:57)
--- NOTE | 2018-03-08 12:57 | DELIVERY NOTE ---
Delivery Note - Labor Labor: positive: Spontaneous, Augmented by oxytocin - Delivery Method Delivery Method: positive: Spontaneous vaginal delivery - Presentation Presentation: positive: Vertex, OA - occiput anterior - Nuchal Cord Nuchal Cord: positive: None - Amniotic Fluid Description Amniotic Fluid Description: positive: Particulate meconium - Episiotomy Type Episiotomy Type: positive: None - Laceration Laceration: positive: None - Delivery Outcome Delivery Outcome: positive: Livebirth - [place] : positive: Placed in direct skin contact with mother [place] sex: positive: Female : 8 : 9 - Cord Cord: positive: 3 vessels - Placenta Placenta: positive: Intact, Spontaneous - Estimated Blood Loss Estimated Blood Loss (in cc): 250 - Post Delivery Events Post Delivery Events: positive: No post delivery events - Delivery Comments (Free Text/Narrative) Delivery Comments (Free Text/Narrative): 32 yo with a 39w5d IUP presented in early active labor. The patient spontaneously progressed into active labor. She received an epidural for pain control. AROM revealed thick particulate meconium. of a viable female fetus , "Kelli." No nuchal cord nor shoulder dystocia. Placenta delivered spontaneously, intact, 3VC. Intact perineum. EBL 250 mL. No complications. Routine care.
[2018-03-08] MEDS: ACETAMINOPHEN 325 MG TABLET PO PRN ×2 (13:54→19:51)
[2018-03-08] MEDS: WITCH HAZEL/GLYCERIN 1 EACH MED..PAD TOP PRN (19:51)
[2018-03-08] MEDS: DOCUSATE SODIUM 100 MG CAPSULE PO SCH (22:25)
[2018-03-08] MEDS: CELECOXIB 100 MG CAPSULE PO SCH (22:25)
[2018-03-09] MEDS: ACETAMINOPHEN 325 MG TABLET PO PRN ×2 (04:10→08:08)
[2018-03-09] MEDS: WITCH HAZEL/GLYCERIN 1 EACH MED..PAD TOP PRN (08:07)
[2018-03-09] MEDS: DOCUSATE SODIUM 100 MG CAPSULE PO SCH (08:08)
[2018-03-09] MEDS: CELECOXIB 100 MG CAPSULE PO SCH (08:08)
--- NOTE | 2018-03-09 12:40 | PROVIDER PROGRESS NOTE ---
Subjective - Prog Note Date Prog Note Date: 03/09/18 Prog Note Time: 12:38 - Subjective Pt reports feeling: Improved Subjective: Patient sitting in bed. Pelvic pain light. Does complain of pain in her back, around the site of the epidural location. Mild lochia. Able to tolerate regular diet. Ambulating and urinating without difficulty. Desires to go home. Sikh has to do his post-vasectomy follow up check. Objective - Vital Signs/Intake & Output Reviewed Vital Signs: Yes Vital Signs: Vital Signs x48h Temp Pulse Resp BP Pulse Ox 03/09/18 08:00 98.1 F 84 18 91/69 100 Intake & Output: Intake & Output 03/06/18 03/07/18 03/08/18 03/09/18 23:59 23:59 23:59 23:59 Intake Total 2430 Output Total 950 Balance 1480 - Objective General Appearance: positive: No acute distress Eyes Bilateral: positive: Normal inspection Abdomen: positive: Non-tender, Other (Firm fundus) Skin: positive: Puncture wound (Midline back, about S1 has 4 puncture sites from the epidural placement. TTP. No ecchymosis, erythema, nor edema.) - Lab Results Fish Bones: 03/08/18 04:40 Assessment/Plan - Problem List (1) Vaginal delivery Impression: 32 yo S/p 03/08/2018 Normal recovery Routine care Discharge home today Rx for motrin and colace faxed via [employer] to her pharmacy. Handwritten Rx for vicodin available No lifting > 1 gallon of milk Recommend showers vs baths Call if worsening fevers, chills, abdominal pain, or vaginal bleeding Follow up in 3 and 8 weeks Dictation [id number] Departure - Departure Disposition: 01 Home, Self Care Condition: Good
[2018-03-09 14:40] VITALS: BP 118/63
--- NOTE | 2018-03-09 16:41 | Labor Flowsheet ---
Labor Flowsheet Datetime Report Generated by CPN: 03/09/2018 16:40 Datetime: 03/09/2018 07:58 VITAL SIGNS NBP Sys/Nahomi/Mean (mmHg): 91 : 69 : 72 Pulse: 84 LaborFlag: Labor Datetime: 03/08/2018 12:35 UTERINE ACTIVITY Monitor Mode: External Frequency (min): 3 Quality: Strong Duration (sec): 60 Pattern: Normal: <= 5 Contractions in 10 Minutes Resting Tone (Palpate): Relaxed ASSESSMENT A Monitor Mode: Telemetry FHR Baseline Rate : 160 FHR Baseline Changes: No Baseline Change Variability: Minimal - Undetectable to <=5 bpm Accelerations: None Decelerations: Prolonged Category: Category II Comments: of a viable female infant. Baby to mom's abdoman, dried and stimulated. Spontaneous cry noted. Oxygen Method: Room Air Datetime: 03/08/2018 12:29 Monitor Interventions for FHR: Ultrasound Adjusted PAIN Pain Scale: 2 Pain Presence: Intermittent Pain Type: Pressure Pain Location: Perineum Pushing Position: Pushing with Contractions Pushing Progress: Descent with Pushing; Perineal Bulging; Rectal Bulging; Molding Noted; Presenting Part Visible; with Pushing; Pushing Effectively with Contractions Datetime: 03/08/2018 12:15 STAGE 2 Pushing: Urge to Push Datetime: 03/08/2018 12:05 MEDICATIONS Pitocin (milliunits): Increased to @ (Annotations: 4) Datetime: 03/08/2018 11:06 I/O Interventions: Monreal Discontinued Patient Care Comments: 750 urine Datetime: 03/08/2018 10:45 Stage of : Labor Provider Reviewed Strip: Yes Strip Reviewed by: Dr Valderrama COMMUNICATION Communication: Call/Page Placed to Provider Communication Comments: Rachele Matthews, notified that patient is complete and going to start to pu sh and that Dr Valderrama just ruptured membranes with particulate meconium noted. MD states to call if h e is needed, but not coming at this point. RT notified of meconium and that patient is getting ready to start pushing. Will plan to attend delivery. Datetime: 03/08/2018 10:42 VAGINAL EXAM Dilatation (cm): 10.0 Effacement (%): 100 Station: 1 Exam by: Dr Valderrama Membrane Status: Ruptured Membranes Rupture Method: Artificial Amniotic Fluid Color: Heavy Meconium Amniotic Fluid Amount: Moderate Amniotic Fluid Odor: Normal Datetime: 03/08/2018 10:30 Patient Position/Activity: Left Lateral Datetime: 03/08/2018 10:25 Provider Notified (Name): Dr Valderrama Notification Reason: Status; Labor Status; Membrane Status; Uterine Activity Datetime: 03/08/2018 10:14 Procedures: Sterile Vag Exam Datetime: 03/08/2018 10:06 Vaginal Bleeding: Normal Show Cervix, Consistency: Soft Cervix, Position: Midposition Vaginal Exam Comments: rim of cervix on the right side Datetime: 03/08/2018 10:02 Respirations: 20 Temperature (C): 37.6 Monitor Interventions for UA: [place] Adjusted Resting Tone IUP (mmHg): soft MATERNAL ASSESSMENT Level of Consciousness: Fully Conscious Headache: Denies Nausea/Vomiting: Denies RUQ Epigastric Pain: Denies Datetime: 03/08/2018 09:45 Contraction Comments: inverted on toco Datetime: 03/08/2018 07:54 Pain Relief Measures: Epidural Given Pain Coping: Talking Through Contractions; Sleeping Pain Assessment Comments: Denies any pain, able to sleep. DTR's/Clonus: DTRs 1+; No Clonus Breath Sounds, Left: Clear and Equal Breath Sounds, Right: Clear and Equal Maternal Comments: Epidural is dense and patient is unable to move her legs. ANESTHESIA Anesthesia Plans: Epidural Anesthesia Level Check: T7 TEACHING Instructional Method: Verbal Plan of Care: Plan of Care Discussed Datetime: 03/08/2018 07:43 Hygiene: Anali Care Datetime: 03/08/2018 07:34 SpO2 (%): 98 Datetime: 03/08/2018 07:00 Oxygen Amount (LPM): 10 Datetime: 03/08/2018 05:49 Epidural Procedure Other: Single Dose Datetime: 03/08/2018 05:39 Anesthesia Comments: 5 cc Naropin Datetime: 03/08/2018 05:34 Epidural Procedure: Test Dose Datetime: 03/08/2018 05:32 PATIENT CARE IV/Blood Work: New IV Bag Hung Datetime: 03/08/2018 05:31 Epidural Positioning: Sitting Datetime: 03/08/2018 05:28 PROCEDURE TIME OUT Procedure Verify: Correct Patient Identity; Correct Side and Site are Marked; Accurate Procedure Co nsent Form; Agreement on Procedure to be Done; Correct Patient Position; Safety Precautions Based on Patient History or Medication Use Datetime: 03/08/2018 01:25 Analgesics/Sedatives: Morphine Sulfate (mg) @; Phenergan (mg) @ (Annotations: morphine 10 mg IM phenergan 25mg IM)
--- NOTE | 2018-03-09 22:09 | DISCHARGE SUMMARY ---
Physician: Carolina Valderrama DO DATE OF ADMISSION: 03/08/2018 DATE OF DISCHARGE: 03/09/2018 DIAGNOSES ON ADMISSION 1. A 32-year-old G2, P1-0-0-1, with a 39-6/7 week intrauterine . 2. Active labor. DIAGNOSES ON DISCHARGE 1. A 32-year-old G2, P2-0-0-2, status post spontaneous vaginal delivery on . 2. Normal recovery. BRIEF HISTORY: This is a patient of [facility] who presented on 03/07/2018 with complaints of contractions. Patient was watched, and her cervix slowly progressed to active labor. Patient was admitted to the hospital and then received an epidural for pain control. Artificial rupture of membranes revealed thick particulate meconium. Patient spontaneously delivered a viable female , named Kelli, who weighed 7 pounds 12 ounces. EBL was 250 mL and her perineum was found to be intact. Apgars were 8 and 9 at 1 and 5 minutes respectively. There were no complications. Patient's course has been remarkable only for pain in her back where her epidural was placed. Otherwise, she has minimum pelvic pain and is ambulating and tolerating a regular diet. She is urinating without difficulty, and her pain is controlled for the most part with oral medications. Patient verbalized her desire to go home today. I counseled patient to not lift anything heavier than a gallon of milk and that showers are probably better than baths since it is more difficult to get in and out of the bath secondary to her vaginal delivery. Patient is to call should she have any worsening fevers, chills, abdominal pain or vaginal bleeding. Prescriptions for ibuprofen, as well as Colace have been sent to her pharmacy. 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 Patient is to follow up with myself at [facility] in 3 and 8 weeks. Her , Roman Catholic, had a vasectomy and needs to follow up with his postop visit before being cleared. TD: 03/09/2018 22:09 MAYO
== END 2018-03-09 15:50 | disposition home or self-care (01) | DRG 775 ==
LOC: WFO 19:50 → FBP 19:51 → WFO 03-08 00:24 → UNDOADMIN 03-08 00:25 → FBP 03-08 00:25 → OBSVTOIN 03-08 04:10 → UNDODISIN 03-09 15:50
PROVIDERS: ADMIT Obstetrics & Gynecology; ATTEND Obstetrics & Gynecology
PROC: 10E0XZZ Delivery of Products of Conception, External Approach (ICD-10-PCS; principal; 2018-03-08)
PROC: 10907ZC Drainage of Amniotic Fluid, Therapeutic from Products of Conception, Via Natural or Artificial Opening (ICD-10-PCS; 2018-03-08)
DX: O77.0 Labor and delivery complicated by meconium in amniotic fluid (principal); Z3A.39 39 weeks gestation of pregnancy; Z37.0 Single live birth
CPT/HCPCS: 36415; 85025; 96372; 99213